=== PATIENT | male | born 1960 | race Caucasian/White ===

== ENCOUNTER 2024-07-23 09:05 | Day surgery (SDC) | payer BC ==
[~2024-07-23] VITALS: Ht 200.7 cm; Wt 118.1 kg
[2024-07-23] VITALS (17 sets, daily range): BP systolic 112–143; BP diastolic 74–113
[~2024-07-23 09:05] MED LIST: Lactated Ringer's 1,000 ML IV SCH
[2024-07-23] MEDS ORDERED: METO25ER PO (09:29)
[2024-07-23] MEDS ORDERED: XARELTO20 MG PO (09:30)
[2024-07-23] MEDS ORDERED: LOSA25 PO (09:31)
[2024-07-23] MEDS ORDERED: Amlodipine Bes2.5 MG PO (09:31)
[2024-07-23] MEDS ORDERED: propofoL 40 ML IV ONE (11:02)
--- NOTE | 2024-07-23 11:23 | NUR ---
07/23/24 1123 Patria Roblero HISTORY, CHART, MEDICATIONS AND ALLERGIES REVIEWED BEFORE START OF PROCEDURE. PATIENT CONFIRMS NPO STATUS AND AGREES WITH SCHEDULED PROCEDURE. 3-LEAD EKG REVIEWED WITH PHYSICIAN PRIOR TO START OF PROCEDURE. MONITOR INTACT WITH CONTINUOUS PULSE OXIMETRY,CAPNOGRAPHY, 3-LEAD EKG, INTERMITTENT BP. SUPPLEMENTAL O2 TO BE TITRATED THROUGHOUT PROCEDURE TO MAINTAIN O2 SATURATION ABOVE 90%. PATIENT DETERMINED TO BE ASA APPROPRIATE FOR PROPOFOL SEDATION PRIOR TO START OF PROCEDURE BY
--- NOTE | 2024-07-23 12:05 | NUR ---
Discharge instructions reviewed with patient. Patient verbalizes understanding. Copy given to patient to take home. Patient States Post-Procedure ride home has been arranged. Discharged via wheelchair to private car for ride home.
== END 2024-07-23 12:05 | disposition home or self-care (01) ==
LOC: ORSCMMR 09:05 → ORD 10:45 → ORSCMMR 10:45
PROVIDERS: Surgery
PROC: 0DBL8ZX Excision of Transverse Colon, Via Natural or Artificial Opening Endoscopic, Diagnostic (ICD-10-PCS; principal; 2024-07-23 10:45)
DX: Z12.11 Encounter for screening for malignant neoplasm of colon (principal); D12.3 Benign neoplasm of transverse colon; J45.909 Unspecified asthma, uncomplicated; I10 Essential (primary) hypertension; Z79.01 Long term (current) use of anticoagulants; Z79.899 Other long term (current) drug therapy; Z87.891 Personal history of nicotine dependence
CPT/HCPCS: 88305; J2704; J7120